=== PATIENT | female | born 1940 | race Caucasian/White ===

== ENCOUNTER → 2016-10-18 | Outpatient (REF) ==
[~2016-10-18] MED LIST: ASPIRIN 32325 MG/TAB PO; CIPRO 100MG TA100 MG PO; COMTAN 200MG T200 MG PO; IMODIUM 2MG CAPS2 MG PO; LIPITOR 10MG10 MG PO; LOMOTIL 0.025 M1 TAB PO; NITROSTAT0.4 MG/TAB SL; NORVASC 5MG5 MG/TAB PO; PREDNISONE20 MG PO; PRINIVIL40 MG PO; PRINZIDE 12.5 M1 TAB PO; PROTONIX 40MG T40 MG PO; REQUIP4 MG PO; SINEMET 25/101 UDTAB PO; SYNTHROID0.05 MG/TA PO; VANCOCIN H125 MG/CAP PO; VITAMIN D 1001000 IU PO; ZOFRAN 4MG T4 MG/TAB PO
[2016-10-18 11:10] LABS: TOTAL IRON BINDING CAPACITY 368 ug/dL (265-497)
[2016-10-18 11:37] LABS: FERRITIN 27 ng/mL (11-264)
[2016-10-18 12:02] LABS: C-REACTIVE PROTEIN < 0.5 mg/dL (0.0-0.9)
== END ==
LOC: ZLAB.WCH 10:36
PROVIDERS: Internal Medicine
DX: Z01.89 Encounter for other specified special examinations (principal)

== ENCOUNTER → 2016-12-26 | Outpatient (REF) | LOC: ZLAB.WCH 18:15 | DX: Z01.89 Encounter for other specified special examinations (principal) ==

== ENCOUNTER 2017-01-20 07:41 | Emergency (ER) | payer MEDICARE, BC ==
[~2017-01-20] VITALS: Ht 172.7 cm; Wt 65.9 kg
[~2017-01-20 07:41] MED LIST changes: -IMODIUM 2MG CAPS2 MG PO; -PRINZIDE 12.5 M1 TAB PO; -PROTONIX 40MG T40 MG PO; -VANCOCIN H125 MG/CAP PO; -ZOFRAN 4MG T4 MG/TAB PO
[2017-01-20 07:59] LABS: BASO % 0.6 % (0.0-2.0); EOS # 0.1 (0.0-0.7); EOS % 1.9 % (0-4.0); GRAN # 2.4 (1.4-6.5); GRAN % 50.6 % (42.2-75.2); HEMATOCRIT 33.9 % (37.0-47.0); HEMOGLOBIN 11.3 g/dl (12.5-16.0); LYMPH # 1.8 (1.2-3.4); LYMPH % 37.8 % (20.0-51.0); MEAN CELL VOLUME 93 fl (80.0-100.0); MEAN CORPUSCULAR HEMOGLOBIN 31 pg (27.0-31.0); MEAN CORPUSCULAR HGB CONC 33 g/dl (33.0-37.0); MEAN PLATELET VOLUME 8.6 fl (7.4-10.4); MONO # 0.4 (0.1-0.6); MONO % 8.7 % (1.7-9.3); PLATELET COUNT 222 K/mm3 (130-400); RED BLOOD COUNT 3.63 M/mm3 (4.10-5.30); REDCELL DISTRIBUTION WIDTH-CV 13.7 % (11.5-14.5); WHITE BLOOD COUNT 4.7 K/mm3 (4.8-10.8)
[2017-01-20 08:07] LABS: INR 0.9 (0.8-3.0); PROTHROMBIN TIME 9.9 SECONDS (9.7-12.8)
[2017-01-20 08:18] LABS: ADJUSTED CALCIUM 9.8 mg/dL (8.4-10.2); ALANINE AMINOTRANSFERASE 16 U/L (9-52); ALBUMIN 4.4 gm/dL (3.5-5.0); ALKALINE PHOSPHATASE 55 U/L (50-136); ANION GAP 9 mmol/L (7-16); BILIRUBIN,TOTAL 1.2 mg/dL (0.0-1.0); BLOOD UREA NITROGEN 17 mg/dL (7-17); C-REACTIVE PROTEIN < 0.5 mg/dL (0.0-0.9); CALCIUM 10.1 mg/dL (8.4-10.2); CARBON DIOXIDE 25 mmol/L (22-30); CHLORIDE 99 mmol/L (98-107); CREATININE, serum 0.91 mg/dL (0.52-1.25); GLUCOSE 97 mg/dL (74-106); SODIUM 133 mmol/L (137-145); TOTAL PROTEIN 7.6 gm/dL (6.4-8.2)
[2017-01-20 11:45] VITALS: BP 129/73; PULSE 61
== END 2017-01-20 11:45 | disposition home or self-care (01) ==
LOC: COL.ER 07:41
PROVIDERS: Family Medicine
DX: G20 Parkinson's disease (principal); I10 Essential (primary) hypertension; Z87.891 Personal history of nicotine dependence; Z79.82 Long term (current) use of aspirin; Z90.710 Acquired absence of both cervix and uterus; Z90.49 Acquired absence of other specified parts of digestive tract

== ENCOUNTER 2017-02-01 09:54 | Emergency (ER) | payer MEDICARE, BC ==
[~2017-02-01] VITALS: Ht 172.7 cm; Wt 64.1 kg
[2017-02-01 09:57] VITALS: TEMP 97.7
[2017-02-01] MEDS ORDERED: IMODIUM 2MG CAPS2 MG PO (10:59)
[2017-02-01] MEDS ORDERED: PRINZIDE 12.5 M1 TAB PO (11:01)
[2017-02-01 11:02] LABS: BASO % 0.4 % (0.0-2.0); EOS % 0.6 % (0-4.0); GRAN # 5.1 (1.4-6.5); GRAN % 76.6 % (42.2-75.2); HEMATOCRIT 29.3 % (37.0-47.0); HEMOGLOBIN 10.4 g/dl (12.5-16.0); LYMPH % 14.8 % (20.0-51.0); MEAN CELL VOLUME 88 fl (80.0-100.0); MEAN CORPUSCULAR HEMOGLOBIN 31 pg (27.0-31.0); MEAN CORPUSCULAR HGB CONC 36 g/dl (33.0-37.0); MEAN PLATELET VOLUME 9.2 fl (7.4-10.4); MONO # 0.5 (0.1-0.6); MONO % 7.3 % (1.7-9.3); PLATELET COUNT 181 K/mm3 (130-400); RED BLOOD COUNT 3.34 M/mm3 (4.10-5.30); REDCELL DISTRIBUTION WIDTH-CV 12.7 % (11.5-14.5); WHITE BLOOD COUNT 6.7 K/mm3 (4.8-10.8)
[2017-02-01 11:05] LABS: PH 5 (5-8); SQUAMOUS EPITHELIAL 0-2 /hpf; URINE APPEARANCE Clear; URINE BACTERIA None Seen /hpf; URINE BILIRUBIN Negative (NEGATIVE); URINE BLOOD Negative (NEGATIVE); URINE COLOR Yellow; URINE GLUCOSE Negative (NEGATIVE); URINE KETONE 1+ (NEGATIVE); URINE RBC 0-2 /hpf; URINE UROBILINOGEN Negative (NEGATIVE); URINE WBC 0-2 /hpf
[2017-02-01 11:18] LABS: BILIRUBIN,TOTAL 1.2 mg/dL (0.0-1.0); CREATININE, serum 0.85 mg/dL (0.52-1.25); POTASSIUM 3.7 mmol/L (3.4-5.0); TOTAL PROTEIN 6.8 gm/dL (6.4-8.2)
[2017-02-01 12:10] VITALS: BP 152/98; PULSE 62
[2017-02-01] MEDS ORDERED: PREDNISONE20 MG PO (12:11)
[2017-02-01] MEDS ORDERED: ZOFRAN 4MG T4 MG/TAB PO (12:11)
== END 2017-02-01 12:23 | disposition home or self-care (01) ==
LOC: COL.ER 09:54
PROVIDERS: Emergency Medicine
DX: K52.832 Lymphocytic colitis (principal); I25.10 Atherosclerotic heart disease of native coronary artery without angina pectoris; I10 Essential (primary) hypertension; G20 Parkinson's disease; E87.1 Hypo-osmolality and hyponatremia; R11.10 Vomiting, unspecified
CPT/HCPCS: J2405; J7030; J7512

== ENCOUNTER 2017-02-03 07:51 | Emergency (ER) | payer MEDICARE, BC ==
[~2017-02-03] VITALS: Ht 172.7 cm; Wt 64.1 kg
[~2017-02-03 07:51] MED LIST changes: +IMODIUM 2MG CAPS2 MG PO; +PRINZIDE 12.5 M1 TAB PO; +ZOFRAN 4MG T4 MG/TAB PO
[2017-02-03 07:54] VITALS: TEMP 97.9
[2017-02-03 08:34] LABS: PH 5 (5-8); SQUAMOUS EPITHELIAL 0-2 /hpf; URINE APPEARANCE Clear; URINE BACTERIA None Seen /hpf; URINE BILIRUBIN Negative (NEGATIVE); URINE BLOOD Negative (NEGATIVE); URINE COLOR Yellow; URINE GLUCOSE Negative (NEGATIVE); URINE KETONE Negative (NEGATIVE); URINE RBC 0-2 /hpf; URINE UROBILINOGEN Negative (NEGATIVE); URINE WBC 0-2 /hpf
[2017-02-03 08:44] LABS: BASO % 0.2 % (0.0-2.0); EOS % 0.3 % (0-4.0); GRAN # 5.2 (1.4-6.5); GRAN % 81.3 % (42.2-75.2); HEMOGLOBIN 10.6 g/dl (12.5-16.0); LYMPH # 0.9 (1.2-3.4); LYMPH % 13.4 % (20.0-51.0); MEAN CELL VOLUME 89 fl (80.0-100.0); MEAN CORPUSCULAR HEMOGLOBIN 31 pg (27.0-31.0); MEAN CORPUSCULAR HGB CONC 35 g/dl (33.0-37.0); MEAN PLATELET VOLUME 9.3 fl (7.4-10.4); MONO # 0.3 (0.1-0.6); MONO % 4.2 % (1.7-9.3); PLATELET COUNT 185 K/mm3 (130-400); RED BLOOD COUNT 3.37 M/mm3 (4.10-5.30); WHITE BLOOD COUNT 6.4 K/mm3 (4.8-10.8)
[2017-02-03 08:55] LABS: ADJUSTED CALCIUM 10.2 mg/dL (8.4-10.2); ALANINE AMINOTRANSFERASE 13 U/L (9-52); ALBUMIN 4.3 gm/dL (3.5-5.0); ALKALINE PHOSPHATASE 43 U/L (50-136); ANION GAP 8 mmol/L (7-16); BILIRUBIN,TOTAL 1.1 mg/dL (0.0-1.0); BLOOD UREA NITROGEN 16 mg/dL (7-17); CALCIUM 10.4 mg/dL (8.4-10.2); CARBON DIOXIDE 25 mmol/L (22-30); CHLORIDE 94 mmol/L (98-107); CREATININE, serum 0.94 mg/dL (0.52-1.25); GLUCOSE 97 mg/dL (74-106); MAGNESIUM 1.7 mg/dL (1.6-2.3); PHOSPHOROUS 2.7 mg/dL (2.5-4.5); POTASSIUM 3.6 mmol/L (3.4-5.0); SODIUM 127 mmol/L (137-145); TOTAL PROTEIN 7.1 gm/dL (6.4-8.2)
[2017-02-03 09:10] LABS: TROPONIN-I < 0.012 ng/mL (0.000-0.034)
[2017-02-03] MEDS ORDERED: VANCOCIN H125 MG/CAP PO (13:10)
[2017-02-03 13:21] VITALS: BP 155/68; PULSE 54
== END 2017-02-03 13:22 | disposition home or self-care (01) ==
LOC: COL.ER 07:51
PROVIDERS: Emergency Medicine
DX: E87.1 Hypo-osmolality and hyponatremia (principal); E86.0 Dehydration; A04.7 Enterocolitis due to Clostridium difficile; G20 Parkinson's disease; E78.5 Hyperlipidemia, unspecified; I10 Essential (primary) hypertension; I25.10 Atherosclerotic heart disease of native coronary artery without angina pectoris; E89.0 Postprocedural hypothyroidism
CPT/HCPCS: J7030

== ENCOUNTER 2017-02-05 07:10 | Emergency (ER) | payer MEDICARE, BC ==
[~2017-02-05] VITALS: Ht 172.7 cm; Wt 63.6 kg
[~2017-02-05 07:10] MED LIST changes: +VANCOCIN H125 MG/CAP PO
[2017-02-05 07:12] VITALS: TEMP 97.8
[2017-02-05 08:19] LABS: BASO % 0.3 % (0.0-2.0); EOS # 0.1 (0.0-0.7); EOS % 1.6 % (0-4.0); GRAN # 4.9 (1.4-6.5); GRAN % 77.6 % (42.2-75.2); HEMOGLOBIN 10.9 g/dl (12.5-16.0); LYMPH # 0.9 (1.2-3.4); LYMPH % 14.4 % (20.0-51.0); MEAN CELL VOLUME 90 fl (80.0-100.0); MEAN CORPUSCULAR HEMOGLOBIN 32 pg (27.0-31.0); MEAN CORPUSCULAR HGB CONC 35 g/dl (33.0-37.0); MEAN PLATELET VOLUME 9.1 fl (7.4-10.4); MONO # 0.4 (0.1-0.6); MONO % 5.5 % (1.7-9.3); PLATELET COUNT 193 K/mm3 (130-400); RED BLOOD COUNT 3.46 M/mm3 (4.10-5.30); REDCELL DISTRIBUTION WIDTH-CV 13.3 % (11.5-14.5); WHITE BLOOD COUNT 6.3 K/mm3 (4.8-10.8)
[2017-02-05 08:32] LABS: ADJUSTED CALCIUM 9.7 mg/dL (8.4-10.2); ALANINE AMINOTRANSFERASE 18 U/L (9-52); ALBUMIN 4.1 gm/dL (3.5-5.0); ALKALINE PHOSPHATASE 45 U/L (50-136); ANION GAP 7 mmol/L (7-16); BILIRUBIN,TOTAL 1.2 mg/dL (0.0-1.0); BLOOD UREA NITROGEN 13 mg/dL (7-17); CALCIUM 9.8 mg/dL (8.4-10.2); CARBON DIOXIDE 28 mmol/L (22-30); CHLORIDE 92 mmol/L (98-107); CREATININE, serum 1.02 mg/dL (0.52-1.25); GLUCOSE 84 mg/dL (74-106); POTASSIUM 3.2 mmol/L (3.4-5.0); SODIUM 127 mmol/L (137-145)
[2017-02-05 08:33] LABS: C-REACTIVE PROTEIN < 0.5 mg/dL (0.0-0.9)
[2017-02-05 08:45] LABS: TROPONIN-I < 0.012 ng/mL (0.000-0.034)
[2017-02-05] MEDS ORDERED: PROTONIX 40MG T40 MG PO (09:49)
[2017-02-05 10:11] VITALS: BP 158/89; PULSE 55
== END 2017-02-05 10:13 | disposition home or self-care (01) ==
LOC: COL.ER 07:10
PROVIDERS: Emergency Medicine
DX: K52.832 Lymphocytic colitis (principal); K21.9 Gastro-esophageal reflux disease without esophagitis; I10 Essential (primary) hypertension; I25.10 Atherosclerotic heart disease of native coronary artery without angina pectoris; G20 Parkinson's disease; E87.1 Hypo-osmolality and hyponatremia; R19.7 Diarrhea, unspecified; E03.9 Hypothyroidism, unspecified; Z79.82 Long term (current) use of aspirin
CPT/HCPCS: J2060; J7030

== ENCOUNTER → 2017-02-09 | Outpatient (REF) ==
[~2017-02-09] MED LIST changes: +PROTONIX 40MG T40 MG PO
== END ==
LOC: ZLAB.WCH 17:59
DX: Z01.89 Encounter for other specified special examinations (principal)

== ENCOUNTER → 2017-05-09 | Outpatient (REF) ==
[~2017-05-09] MED LIST changes: +NEUPRO4 MG/24 HR TD; +NORCO 325 MG-7.1 TAB PO; +PRINZIDE 12.5 M1 TA1 PO; -PRINZIDE 12.5 M1 TAB PO; +SINEMET CR1 UDTAB.S1 PO; +ZOLOFT 100MG100 MG PO
== END ==
LOC: ZLAB.WCH 10:37
DX: Z01.89 Encounter for other specified special examinations (principal)

== ENCOUNTER 2017-08-14 11:04 | Outpatient (RCR) | payer MEDICARE, BC ==
[2017-09-25] MEDS ORDERED: KLONOPIN 0.5MG0.5 MG PO (20:49)
[2017-09-25] MEDS ORDERED: REQUIP XL4 MG PO (20:49)
[2017-09-25] MEDS ORDERED: COLESTID 1GM1 G PO (20:50)
[2017-09-25] MEDS ORDERED: ARICEPT10 MG PO (20:51)
== END 2017-11-12 | disposition home or self-care (01) ==
LOC: WSST
DX: G20 Parkinson's disease (principal)
CPT/HCPCS: G8996-GN; G8997-GN

== ENCOUNTER 2017-09-25 20:07 | Emergency (ER) | payer MEDICARE, BC ==
[~2017-09-25] VITALS: Ht 172.7 cm; Wt 84.1 kg
[2017-09-25 20:13] VITALS: BP 153/67; TEMP 98.3
[2017-09-25] MEDS ORDERED: REQUIP XL4 MG PO (20:49)
[2017-09-25] MEDS ORDERED: KLONOPIN 0.5MG0.5 MG PO (20:49)
[2017-09-25] MEDS ORDERED: COLESTID 1GM1 G PO (20:50)
[2017-09-25] MEDS ORDERED: ARICEPT10 MG PO (20:51)
[2017-09-25 21:44] LABS: COLLECTION METHOD CLEAN CATCH
[2017-09-25 21:49] LABS: MUCOUS Present /lpf; PH 5 (5-8); SQUAMOUS EPITHELIAL 0-2 /hpf; URINE APPEARANCE Clear; URINE BACTERIA None Seen /hpf; URINE BILIRUBIN Negative (NEGATIVE); URINE BLOOD Negative (NEGATIVE); URINE COLOR Amber; URINE GLUCOSE Negative (NEGATIVE); URINE KETONE Trace (NEGATIVE); URINE LEUKOCYTE ESTERASE Negative (NEGATIVE); URINE NITRATE Negative (NEGATIVE); URINE PROTEIN(semi-quant) Negative (NEGATIVE); URINE RBC 0-2 /hpf; URINE UROBILINOGEN Negative (NEGATIVE)
[2017-09-25 22:20] VITALS: PULSE 78
== END 2017-09-25 22:20 | disposition home or self-care (01) ==
LOC: COL.ER 20:07
PROVIDERS: Emergency Medicine
DX: F32.9 Major depressive disorder, single episode, unspecified (principal); F41.9 Anxiety disorder, unspecified; E03.9 Hypothyroidism, unspecified; I10 Essential (primary) hypertension; G20 Parkinson's disease

== ENCOUNTER 2017-10-09 01:28 | Observation (INO) | payer MEDICARE, BC ==
[~2017-10-09] VITALS: Ht 172.7 cm; Wt 57.1 kg
[~2017-10-09 01:28] MED LIST changes: +ARICEPT10 MG PO; +COLESTID 1GM1 G PO; +KLONOPIN 0.5MG0.5 MG PO; +REQUIP XL4 MG PO
[2017-10-09 02:25] LABS: BASO % 0.7 % (0.0-2.0); EOS # 0.1 (0.0-0.7); EOS % 2.5 % (0-4.0); GRAN # 2.7 (1.4-6.5); GRAN % 61.6 % (42.2-75.2); LYMPH # 1.2 (1.2-3.4); LYMPH % 26.9 % (20.0-51.0); MEAN CELL VOLUME 91 fl (80.0-100.0); MEAN CORPUSCULAR HGB CONC 34 g/dl (33.0-37.0); MEAN PLATELET VOLUME 9.6 fl (7.4-10.4); MONO # 0.4 (0.1-0.6); MONO % 8.1 % (1.7-9.3); PLATELET COUNT 163 K/mm3 (130-400); RED BLOOD COUNT 3.44 M/mm3 (4.10-5.30); REDCELL DISTRIBUTION WIDTH-CV 12.5 % (11.5-14.5)
[2017-10-09 02:29] LABS: HEMATOCRIT 31.3 % (37.0-47.0); HEMOGLOBIN 10.6 g/dl (12.5-16.0); MEAN CORPUSCULAR HEMOGLOBIN 31 pg (27.0-31.0)
[2017-10-09 02:43] LABS: ACETAMINOPHEN < 10 ug/mL (10-30); ALANINE AMINOTRANSFERASE 23 U/L (9-52); ALCOHOL(ethanol),MEDICAL < 10 mg/dL; ALKALINE PHOSPHATASE 63 U/L (50-136); ANION GAP 9 mmol/L (7-16); AST,SGOT 34 U/L (15-37); BILIRUBIN,TOTAL 0.7 mg/dL (0.0-1.0); BLOOD UREA NITROGEN 29 mg/dL (7-17); CALCIUM 9.9 mg/dL (8.4-10.2); CARBON DIOXIDE 27 mmol/L (22-30); CHLORIDE 107 mmol/L (98-107); CREATININE, serum 1.13 mg/dL (0.52-1.25); GLUCOSE 103 mg/dL (74-106); POTASSIUM 4.3 mmol/L (3.4-5.0); SALICYLATE < 1.0 mg/dL; SODIUM 143 mmol/L (137-145); TOTAL PROTEIN 7.1 gm/dL (6.4-8.2)
[2017-10-09 03:17] LABS: COLLECTION METHOD CLEAN CATCH
[2017-10-09 03:24] LABS: PH 5 (5-8); SQUAMOUS EPITHELIAL 0-2 /hpf; URINE APPEARANCE Clear; URINE BACTERIA None Seen /hpf; URINE BILIRUBIN Negative (NEGATIVE); URINE BLOOD Negative (NEGATIVE); URINE COLOR Yellow; URINE GLUCOSE Negative (NEGATIVE); URINE KETONE Trace (NEGATIVE); URINE LEUKOCYTE ESTERASE Negative (NEGATIVE); URINE NITRATE Negative (NEGATIVE); URINE PROTEIN(semi-quant) Negative (NEGATIVE); URINE RBC 0-2 /hpf; URINE UROBILINOGEN Negative (NEGATIVE)
[2017-10-09 03:31] LABS: TRICYCLIC ANTIDEPRESS URINE NEGATIVE
[2017-10-09 06:15] VITALS: BP 144/46; PULSE 62; TEMP 97.4
[2017-10-09 10:38] VITALS: BP 90/47; PULSE 59; TEMP 98.5
[2017-10-09 13:20] VITALS: BP 126/55; PULSE 58; TEMP 97.7
[2017-10-09 17:39] VITALS: BP 110/49; PULSE 72; TEMP 97.6
[2017-10-09 22:00] VITALS: BP 89/43; BP 99/43; PULSE 78; TEMP 96.1
[2017-10-10 02:02] VITALS: BP 95/57; PULSE 65; TEMP 98.5
[2017-10-10 05:17] VITALS: BP 111/41; PULSE 58; TEMP 98.4
[2017-10-10 09:26] VITALS: BP 104/34; PULSE 51; TEMP 98.1
[2017-10-10 13:16] VITALS: BP 127/42; PULSE 77; TEMP 98.1
[2017-10-10 15:44] VITALS: BP 127/42; PULSE 77; TEMP 98.1
== END 2017-10-10 16:25 ==
LOC: COL.ER 01:28 → SURG 05:40
PROVIDERS: Nurse Practitioner
DX: G20 Parkinson's disease (principal); F02.81 Dementia in other diseases classified elsewhere, unspecified severity, with behavioral disturbance; Z74.1 Need for assistance with personal care; R53.1 Weakness; E03.9 Hypothyroidism, unspecified; I10 Essential (primary) hypertension; Z91.5 Personal history of self-harm; Z91.14 Patient's other noncompliance with medication regimen; G47.9 Sleep disorder, unspecified; Z79.82 Long term (current) use of aspirin; Z88.0 Allergy status to penicillin; Z88.2 Allergy status to sulfonamides; Z88.8 Allergy status to other drugs, medicaments and biological substances; Z66 Do not resuscitate
CPT/HCPCS: 99222-AI; 99232-AI; G0378; G8978-GP; G8979-GP; G8987-GO; G8988-GO; J2060